=== PATIENT | female | born 1990 | race African-American/Black ===

== ENCOUNTER 2018-05-04 16:42 | Emergency (ER) | payer SELFPAY ==
[~2018-05-04] VITALS: Ht 152.4 cm; Wt 59.0 kg
[2018-05-04 16:52] VITALS: BP 128/78
--- NOTE | 2018-05-04 17:01 | Emergency Room Report ---
History of Present Illness General Chief Complaint: Behavioral Complaint Source: Patient Present Illness HPI Patient's sister called EMS. She has had suicidal thoughts but no plan. She's never been admitted psychiatrically. She's not taking any medication at this time. She feels very depressed. She also has a headache and is complaining about nausea and vomiting. Her last period was earlier in the month and she does not believe she is at this time. She denies any other medical problems. Never with psych meds. Apparently has financial problems. Allergies: Coded Allergies: No Known Allergies (Unverified , 05/04/18) Patient History Past Medical History: see triage record Social History: Reports: alcohol use; Denies: smoking, drug use - see tox Social History Narrative wardrobe for fashion Last Menstrual Period: 04/24/2018 Reviewed Nursing Documentation: PMH: Agreed; PSxH: Agreed Nursing Documentation-PMH Past Medical History: No Stated History Review of Systems All Other Systems: negative except mentioned in HPI Physical Exam Vital Signs Date Time Temp Pulse Resp B/P (MAP) Pulse Ox O2 Delivery O2 Flow Rate FiO2 05/04/18 16:42 98.5 120 18 128/78 99 Room Air 98.4 Sp02 EP Interpretation: reviewed, normal General Appearance: well appearing, no apparent distress, GCS 15 Head: normocephalic, atraumatic Eyes: bilateral eye normal inspection, bilateral eye PERRL, bilateral eye other - tearful at times ENT: moist mucus membranes Neck: supple Respiratory: lungs clear, normal breath sounds Cardiovascular #1: regular rate, rhythm Cardiovascular #2: 2+ radial (R) Gastrointestinal: normal inspection, normal bowel sounds, non tender, no mass, non-distended Musculoskeletal: back normal, gait/station normal, normal range of motion Neurologic: alert, oriented x3, grossly normal Psychiatric: depressed affect Suicide Risk Assessment: Suicidal Ideation: Yes Had intent to initiate attempt: No Pt's plan for suicide attempt: No Has means to complete attempt: No Skin: normal inspection, warm/dry Medical Decision Making Diagnostic Impression: Primary Impression: Situational depression Additional Impression: Substance abuse ER Course Patient presents with suicidal ideation without plan. I differential includes exacerbation of depression, situational stress, electrolyte imbalance amongst others. The patient will be evaluated with labs. Because the patient's vomiting and has a headache she'll be given IV hydration, analgesia and Zofran. Labs with normal CBC (slight high WBC), CMP, UA. Tox + cocaine and THC. She states she did some cocaine last night. Not regular use. Problems with finances - electricity turned off (bill in thousands). Discussed making plan for financial stability. Brother here and feels patient not danger to self. Agrees will have patient stay with family members. Given referral to psych clinic. Patient improved and contracts for safety. Patient stable for outpatient observation and treatment. Laboratory Tests Test 05/04/18 17:21 White Blood Count 12.6 K/UL (4.8-10.8) H Red Blood Count 4.54 M/UL (4.20-5.40) Hemoglobin 12.3 G/DL (12.0-16.0) Hematocrit 37.1 % (37.0-47.0) Mean Corpuscular Volume 82 FL (80-99) Mean Corpuscular Hemoglobin 27.0 PG (27.0-31.0) Mean Corpuscular Hemoglobin Concent 33.1 G/DL (32.0-36.0) Red Cell Distribution Width 14.1 % (11.6-14.8) Platelet Count 214 K/UL (150-450) Mean Platelet Volume 9.6 FL (6.5-10.1) Neutrophils (%) (Auto) 69.7 % (45.0-75.0) Lymphocytes (%) (Auto) 20.1 % (20.0-45.0) Monocytes (%) (Auto) 7.0 % (1.0-10.0) Eosinophils (%) (Auto) 2.3 % (0.0-3.0) Basophils (%) (Auto) 1.0 % (0.0-2.0) Urine Color Pale yellow Urine Appearance Clear Urine pH 7 (4.5-8.0) Urine Specific [place] 1.010 (1.005-1.035) Urine Protein Negative (NEGATIVE) Urine Glucose (UA) Negative (NEGATIVE) Urine Ketones 1+ (NEGATIVE) H Urine Blood Negative (NEGATIVE) Urine Nitrite Negative (NEGATIVE) Urine Bilirubin Negative (NEGATIVE) Urine Urobilinogen Normal MG/DL (0.0-1.0) Urine Leukocyte Esterase 1+ (NEGATIVE) H Urine RBC 0-2 /HPF (0 - 2) Urine WBC 0-2 /HPF (0 - 2) Urine Squamous Epithelial Cells Few /LPF (NONE/OCC) Urine Bacteria Few /HPF (NONE) Urine HCG, Qualitative Negative (NEGATIVE) Sodium Level 143 MMOL/L (136-145) Potassium Level 3.8 MMOL/L (3.5-5.1) Chloride Level 107 MMOL/L (98-107) Carbon Dioxide Level 29 MMOL/L (21-32) Anion Gap 7 mmol/L (5-15) Blood Urea Nitrogen 9 mg/dL (7-18) Creatinine 1.0 MG/DL (0.55-1.30) Estimate Glomerular Filtration Rate > 60 mL/min (>60) Glucose Level 95 MG/DL (74-106) Calcium Level 8.7 MG/DL (8.5-10.1) Total Bilirubin 0.5 MG/DL (0.2-1.0) Aspartate Amino Transferase (AST) 17 U/L (15-37) Alanine Aminotransferase (ALT) 16 U/L (12-78) Alkaline Phosphatase 55 U/L (46-116) Total Creatine Kinase 200 U/L (26-308) Total Protein 7.2 G/DL (6.4-8.2) Albumin 3.5 G/DL (3.4-5.0) Globulin 3.7 g/dL Albumin/Globulin Ratio 0.9 (1.0-2.7) L Salicylates Level 2.4 ug/mL (2.8-20) L Urine Opiates Screen Negative (NEGATIVE) Acetaminophen Level < 2 MCG/ML (10-30) L Urine Barbiturates Screen Negative (NEGATIVE) Phencyclidine (PCP) Screen Negative (NEGATIVE) Urine Amphetamines Screen Negative (NEGATIVE) Urine Benzodiazepines Screen Negative (NEGATIVE) Urine Cocaine Screen Positive (NEGATIVE) H Urine Marijuana (THC) Screen Positive (NEGATIVE) H Serum Alcohol < 3 mg/dL Last Vital Signs Date Time Temp Pulse Resp B/P (MAP) Pulse Ox O2 Delivery O2 Flow Rate FiO2 05/04/18 22:58 98.2 80 18 122/60 99 Room Air 98.2 Status: improved Condition: Improved Alexander Lopez MD May 04, 2018 17:01
[2018-05-04] MEDS ORDERED: Ketorolac 30mg Inj IV ONE (17:15)
[2018-05-04 17:41] LABS: EOSINOPHILS % (AUTO) 2.3 % (0.0-3.0); HEMATOCRIT 37.1 % (37.0-47.0); HEMOGLOBIN 12.3 G/DL (12.0-16.0); LYMPHOCYTES % (AUTO) 20.1 % (20.0-45.0); MEAN CORPUSCULAR VOLUME 82 FL (80-99); NEUTROPHILS % (AUTO) 69.7 % (45.0-75.0); PLATELET COUNT 214 K/UL (150-450); RED BLOOD COUNT 4.54 M/UL (4.20-5.40); RED CELL DISTRIBUTION WIDTH 14.1 % (11.6-14.8); WHITE BLOOD COUNT 12.6 K/UL (4.8-10.8)
[2018-05-04 17:43] LABS: APPEARANCE,URINE CLEAR; BILIRUBIN, URINE NEGATIVE (NEGATIVE); COLOR,URINE PALE YELLOW; GLUCOSE, URINE (UA) NEGATIVE (NEGATIVE); KETONES,URINE 1+ (NEGATIVE); LEUKOCYTE ESTERASE ,URINE 1+ (NEGATIVE); NITRITE,URINE NEGATIVE (NEGATIVE); PH,URINE 7 (4.5-8.0); PROTEIN,URINE NEGATIVE (NEGATIVE); UROBILINOGEN,URINE NORMAL MG/DL (0.0-1.0)
[2018-05-04 17:53] LABS: ANION GAP 7 mmol/L (5-15); BLOOD UREA NITROGEN 9 mg/dL (7-18); CALCIUM 8.7 MG/DL (8.5-10.1); CARBON DIOXIDE 29 MMOL/L (21-32); CHLORIDE 107 MMOL/L (98-107); POTASSIUM 3.8 MMOL/L (3.5-5.1); SODIUM 143 MMOL/L (136-145)
[2018-05-04 17:59] LABS: ALANINE AMINOTRANSFERASE 16 U/L (12-78); ALBUMIN 3.5 G/DL (3.4-5.0); ALBUMIN/GLOBULIN RATIO 0.9 (1.0-2.7); ALKALINE PHOSPHATASE 55 U/L (46-116); ASPARTATE AMINO TRANSFERASE 17 U/L (15-37); BILIRUBIN,TOTAL 0.5 MG/DL (0.2-1.0); CREATINE KINASE 200 U/L (26-308)
[2018-05-04 19:20] VITALS: BP 122/68
[2018-05-04 22:58] VITALS: BP 122/60
== END 2018-05-04 23:00 | disposition home or self-care (01) ==
LOC: EDBD 16:42 → EMR 18:48
DX: R45.851 Suicidal ideations (principal); F43.21 Adjustment disorder with depressed mood
CPT/HCPCS: 36415; 80053; 80307; 81003; 81025; 82550; 85025; 96361; 96374; 96375; 99284; G0480; J1885; J2405; 80329

== ENCOUNTER → 2019-08-14 | Emergency (ER) | payer OTHER ==
[~2019-08-14] VITALS: Ht 157.5 cm; Wt 68.0 kg
[~2019-08-14] MED LIST: Ketorolac 30mg Inj IM ONE; NAPROXEN250 MG ORAL
--- NOTE | 2019-08-14 02:00 | NUR ---
ED Nurse Note: pt presents to ED with a R ankle and hip injury s/p fall earlier today. pt states that she fell and landed on her R hip and twisted her R ankle. pt is unable to bear weight on R foot, she has a decreased ROM of R ankle and reports pain when asked to wiggle her toes. pt denies hitting her head or hearing any "popping" sounds at time of injury. 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
[2019-08-14 02:03] VITALS: BP 138/76
--- NOTE | 2019-08-14 03:10 | Emergency Room Report ---
History of Present Illness General Chief Complaint: Multiple Trauma/Fall Source: Patient Present Illness HPI 29-year-old female presents with right ankle pain after twisting her ankle at the store she was wearing platforms, she lost her balance fell twisted and felt pain in her right ankle are aggravated with movement alleviated with rest severity is moderate, intermittent patient presents for evaluation Allergies: Coded Allergies: No Known Allergies (Unverified , 05/04/18) Patient History Past Medical History: see triage record Last Menstrual Period: na Reviewed Nursing Documentation: PMH: Agreed; PSxH: Agreed Review of Systems All Other Systems: negative except mentioned in HPI Physical Exam Vital Signs Date Time Temp Pulse Resp B/P (MAP) Pulse Ox O2 Delivery O2 Flow Rate FiO2 08/14/19 01:59 97.5 78 16 138/76 (96) 99 Room Air General Appearance: well appearing, no apparent distress Head: normocephalic, atraumatic ENT: hearing grossly normal, normal voice Neck: full range of motion, supple Respiratory: no respiratory distress, speaking full sentences Musculoskeletal: other - Right ankle: 2+ PT DP fires EHL, 5-5 plantar dorsiflexion of the right ankle, motion limited due to pain, additionally patient with minimal swelling, tenderness to palpation along the fourth metatarsal proximally Neurologic: alert, normal gait Psychiatric: mood/affect normal Skin: no rash Procedures Splinting Splinting : Consent: Verbal Location: right ankle Pre-Made Type: aircast Pre-Proc Neuro Vasc Exam: normal Post-Proc Neuro Vasc Exam: normal Patient Tolerated: Well Complications: None Medical Decision Making Diagnostic Impression: Primary Impression: Ankle sprain Qualified Codes: S93.401A - Sprain of unspecified ligament of right ankle, initial encounter ER Course 29-year-old female presents with right ankle sprain most likely ligamentous injury, x-ray shows no acute fracture dislocation will provide air splint additionally and crutches Disposition home with return precautions follow-up with Ortho Other X-Ray Diagnostic Results Other X-Ray Diagnostic Results : X-Ray ordered: right ankle # of Views/Limited Vs Complete: 3 View Indication: Pain EP Interpretation: Yes Interpretation: no dislocation, no soft tissue swelling, no fractures Impression: No acute disease Electronically Signed by: Chuy Bass MD Last Vital Signs Date Time Temp Pulse Resp B/P (MAP) Pulse Ox O2 Delivery O2 Flow Rate FiO2 08/14/19 02:03 78 16 Room Air 08/14/19 02:03 97.5 138/76 99 Disposition: HOME, SELF-CARE Condition: Stable Scripts Naproxen* (NAPROSYN*) 250 Mg Tablet 250 MG ORAL BID PRN for For Pain, #20 TAB 0 Refills Prov: Chuy Bass MD 08/14/19 Referrals: [facility] Patient Instructions: Ankle Sprain, [id number] Additional Instructions: The patient was provided with discharge instructions, notified to follow-up with a primary care doctor and or specialist in the next 24-48 hours, and to return to the ED if they have worsening of their symptoms. Please note that this report is being documented using [employer] technology. This can lead to erroneous entry secondary to incorrect interpretation by the dictating instrument. Chuy Bass MD Aug 14, 2019 03:10
--- NOTE | 2019-08-14 03:15 | NUR ---
ED Nurse Note: pt's R ankle placed in airsplint, pt tolerated procedure well. pt also received instruction on crutch use, understanding of teachings was verbalized
[2019-08-14 03:30] VITALS: BP 138/76
--- NOTE | 2019-08-14 03:30 | NUR ---
ER DISCHARGE NOTE: Patient cleared for DC by Dr. Bass. Patient verbalized understanding of DC and prescription instructions. all medical devices such as ID band removed. patient AxO x 4, ambulates with steady gait, pt left with all belongings
--- NOTE | 2019-08-14 05:01 | Diagnostic Imaging Report ---
EXAM: XR Right Ankle Complete, 3 or More Views CLINICAL HISTORY: PAIN TECHNIQUE: Frontal, lateral and oblique views of the right ankle. COMPARISON: No relevant prior studies available. FINDINGS: Bones/joints: Unremarkable. No acute fracture. No dislocation. Soft tissues: Unremarkable. IMPRESSION: Normal right ankle x-rays.
== END | disposition home or self-care (01) ==
LOC: EMR 09:00
DX: S93.401A Sprain of unspecified ligament of right ankle, initial encounter (principal); W19.XXXA Unspecified fall, initial encounter; Y92.9 Unspecified place or not applicable
CPT/HCPCS: 73610; 81025; 96372; J1885; Z7502; 99283

== ENCOUNTER 2020-06-22 23:36 | Emergency (ER) | payer OTHER ==
[~2020-06-22] VITALS: Ht 157.5 cm; Wt 77.1 kg
[~2020-06-22 23:36] MED LIST changes: -Ketorolac 30mg Inj IM ONE
--- NOTE | 2020-06-22 23:46 | NUR ---
ED NURSE NOTE: Patient walked into ED c/o rash and itching on her vaginal area onset for the past 2 days now she reports of having a blister in said are that popped. she reports of having symptoms before, reports of burnign upon urination. patient is alert and oriented x4, ambulatory with a steady gait, VSS
[2020-06-22 23:50] VITALS: BP 122/79
--- NOTE | 2020-06-22 23:58 | Emergency Room Report ---
History of Present Illness General Chief Complaint: Female Urogenital Problems Source: Patient Present Illness HPI Is a 30-year-old female with no past medical history. She presents with chief complaint of a rash and itching to her vaginal area. Onset for 2 days now. She said there is initially some blistering cluster yesterday and now it burst it. She has similar symptoms twice before. No fever chills but no nausea no vomiting. Tingling sensation to her leg. She is sexually active with her boyfriend. No other complaint. No discharge. White with urination. 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 Patient History Past Medical History: see triage record, old chart reviewed Past Surgical History: none Pertinent Family History: none Social History: Denies: smoking Last Menstrual Period: 06/2020 Now: No Immunizations: other Reviewed Nursing Documentation: PMH: Agreed; PSxH: Agreed Review of Systems Eye: Denies: eye pain, blurred vision ENT: Denies: ear pain, nose congestion, throat swelling Respiratory: Denies: cough, shortness of breath Cardiovascular: Denies: chest pain, palpitations Gastrointestinal: Denies: abdominal pain, diarrhea, nausea, vomiting Musculoskeletal: Denies: back pain, joint pain Skin: Denies: rash Neurological: Denies: headache, numbness Endocrine: Denies: increased thirst, increased urine Hematologic/Lymphatic: Denies: easy bruising All Other Systems: negative except mentioned in HPI Physical Exam Vital Signs Date Time Temp Pulse Resp B/P (MAP) Pulse Ox O2 Delivery O2 Flow Rate FiO2 06/22/20 23:39 98.4 73 16 122/79 (93) 97 Room Air Vitals normal Sp02 EP Interpretation: reviewed, normal General Appearance: well appearing, no apparent distress, alert Head: normocephalic, atraumatic Eyes: bilateral eye PERRL, bilateral eye EOMI ENT: hearing grossly normal, normal pharynx Neck: full range of motion, supple, no meningismus Respiratory: chest non-tender, lungs clear, normal breath sounds Cardiovascular #1: regular rate, rhythm, no murmur Gastrointestinal: normal bowel sounds, non tender, no mass, no organomegaly, no bruit, non-distended Genitourinary: other - Pelvic exam done with female nurse as record press supervisor. She has a vesicular lesion to the right upper vaginal area area around the labia majora. I deferred the speculum exam because of her infection. Musculoskeletal: back normal, normal range of motion, gait/station normal Psychiatric: mood/affect normal Medical Decision Making Diagnostic Impression: Primary Impression: Genital herpes Qualified Codes: A60.04 - Herpesviral vulvovaginitis ER Course Patient presents with recurrent genital herpes. No evidence of dissemination. Will discharge home with prescription for Valtrex. Last Vital Signs Date Time Temp Pulse Resp B/P (MAP) Pulse Ox O2 Delivery O2 Flow Rate FiO2 06/22/20 23:50 98.4 73 16 122/79 97 Room Air Status: unchanged Disposition: HOME, SELF-CARE Condition: Stable Scripts Valacyclovir Hcl* (VALTREX*) 500 Mg Tablet 1000 MG ORAL TWICE A DAY for 7 Days, TAB Prov: Tunde Welch MD 06/23/20 Referrals: [facility],REFERRING (PCP) Additional Instructions: Follow-up with your doctor in 7 days. Return if symptoms worsen. Tunde Welch MD Jun 22, 2020 23:58
[2020-06-23] MEDS ORDERED: VALACYCLOVIR500 MG ORAL (00:02)
[2020-06-23 00:20] VITALS: BP 118/72
--- NOTE | 2020-06-23 00:23 | NUR ---
ER DISCHARGE NOTE: Patient is cleared to be discharged per ERMD, pt is aox4, on room air, with stable vital signs. pt was given dc and prescription instructions, pt was able to verbalize understanding, pt id band removed without complications. pt is able to ambulate with steady gait. pt took all belongings.
== END 2020-06-23 00:20 | disposition home or self-care (01) ==
LOC: EMR 23:50
DX: A60.04 Herpesviral vulvovaginitis (principal)
CPT/HCPCS: 99282